=== PATIENT | male | born 1965 | race Hispanic/Latino ===

== ENCOUNTER → 2019-11-21 | Day surgery (SDC) | payer BC, OTHER ==
[~2019-11-21] MED LIST: ASPIRIN81 MG PO; GLUCAGON FOR INJ 1 MG VIAL ONE; HYOSCYAMINE 0.125 MG TAB ONE; LISINOPRIL10 MG PO; OMEGA 3 1,0001 EACH PO; PROPOFOL IV EMULSION 10 MG/ML 20 ML VIAL ONE
[2019-11-21 11:25] VITALS: BP 134/80
--- NOTE | 2019-11-21 12:02 | Operative Report ---
DATE OF PROCEDURE: 11/21/2019 SURGEON: Giancarlo Fatima MD PROCEDURE: Colonoscopy note. INDICATIONS FOR COLONOSCOPY: Surveillance colonoscopy, personal history of colon polyps. MEDICATIONS: The patient was done under MAC, please see anesthesiologist's note. PROCEDURE IN DETAIL: With the patient in left lateral decubitus position, a flexible fiberoptic Olympus colonoscope was inserted into the rectum with ease and advanced all the way to the cecum. It was then withdrawn slowly, mucosa overlying the cecum appeared to be within normal limits. Diverticular disease was noted to be scattered throughout. The rectum appeared to be within normal limits. The scope was then retroflexed into the distal rectum, small internal hemorrhoids were noted, none of which was actively bleeding. The scope was then straightened out, it was subsequently withdrawn. The patient tolerated the procedure well. IMPRESSION: 1. Pandiverticulosis. 2. Internal hemorrhoids, none actively bleeding. PLAN: 1. Initiate high-fiber, low-fat diet. 2. Initiate high-fiber supplement. 3. The patient might benefit from a followup colonoscopy in 3 to 5 years. Giancarlo Fatima MD [facility] [place]/[facility] [place] /[id number] cc: DR. Chacho HERNÁNDEZ
== END | disposition home or self-care (01) ==
LOC: OR 07:30
PROVIDERS: ATTEND Internal Medicine Gastroenterology
DX: Z12.11 Encounter for screening for malignant neoplasm of colon (principal); K57.30 Diverticulosis of large intestine without perforation or abscess without bleeding; Z86.010 Personal history of colon polyps; I10 Essential (primary) hypertension; Z01.810 Encounter for preprocedural cardiovascular examination; Z01.812 Encounter for preprocedural laboratory examination; Z11.59 Encounter for screening for other viral diseases
CPT/HCPCS: 45378; 93005; J1610; J2704; U0002